=== PATIENT | female | born 1970 | race Caucasian/White ===

== ENCOUNTER 2019-04-08 05:41 | Day surgery (SDC) | payer OTHER ==
[~2019-04-08] VITALS: Ht 160 cm; Wt 93.0 kg
[2019-04-08] MEDS ORDERED: LIDOCAINE 1% 500 MG/50 ML VIAL ONE (08:11)
[2019-04-08] MEDS ORDERED: BUPIVACAINE-MPF/EPI 0.5% 30 ML VIAL INJ ONE (08:11)
[2019-04-08] MEDS ORDERED: ceFAZolin 1,000 MG VIAL ONE (09:26)
[2019-04-08] MEDS ORDERED: PROPOFOL 200 MG/20 ML VIAL IV ONE (09:50)
[2019-04-08] MEDS ORDERED: fentaNYL 0.05 MG/ML VIAL ONE (10:05)
[2019-04-08] MEDS ORDERED: MIDAZOLAM 2 MG/2 ML VIAL ONE (10:05)
[2019-04-08] MEDS ORDERED: LACTATED RINGERS 1,000 ML IV SCH (10:43)
[2019-04-08] MEDS ORDERED: HYDROmorphone 1 MG/ML AMP IVP PRN ×2 (10:45→11:25)
[2019-04-08] MEDS ORDERED: diphenhydrAMINE 50 MG/ML VIAL IVP PRN (10:45)
[2019-04-08] MEDS ORDERED: MEPERIDINE 25 MG/ML SYR IVP PRN (10:45)
[2019-04-08] MEDS ORDERED: ONDANSETRON 4 MG/2 ML VIAL IVP PRN (10:45)
[2019-04-08] MEDS ORDERED: MORPHINE SULFATE 4 MG/ML SYR IV PRN (11:25)
[2019-04-08] MEDS ORDERED: ACETAMINOPHEN 325 MG TAB PO PRN (11:25)
[2019-04-08] MEDS ORDERED: ONDANSETRON 4 MG/2 ML VIAL IV PRN (11:25)
[2019-04-08] MEDS ORDERED: HYDROcodone/APAP 5/325 MG 1 TAB TAB PO PRN (11:25)
[2019-04-08] MEDS ORDERED: MORPHINE SULFATE 2 MG/ML SYR IVP PRN (11:25)
== END 2019-04-08 12:34 | disposition home or self-care (01) ==
LOC: MOR 05:41 → MMU 06:13 → MOR 12:34
PROVIDERS: ATTEND Surgery
DX: C50.912 Malignant neoplasm of unspecified site of left female breast (principal); C50.911 Malignant neoplasm of unspecified site of right female breast; I10 Essential (primary) hypertension; Z90.710 Acquired absence of both cervix and uterus; E66.01 Morbid (severe) obesity due to excess calories; Z79.899 Other long term (current) drug therapy
CPT/HCPCS: 36561; 71045; 71046; 77001; C1788; J0690; J1644; J2001; J2250; J2704; J3010; J3490; J7030; J7060; J7120; Q0092